=== PATIENT | female | born 1980 | race Caucasian/White ===

== ENCOUNTER 2017-06-01 18:36 | Emergency (ER) | payer MEDICAID ==
[2017-06-01 19:41] VITALS: BP 159/97
== END 2017-06-01 19:41 | disposition home or self-care (01) ==
LOC: ED 18:36
DX: S90.31XA Contusion of right foot, initial encounter (principal); X58.XXXA Exposure to other specified factors, initial encounter; Y93.89 Activity, other specified; Y92.89 Other specified places as the place of occurrence of the external cause; Y99.8 Other external cause status
CPT/HCPCS: J1885